=== PATIENT | male | born 1995 | race Caucasian/White ===

== ENCOUNTER 2020-02-28 22:53 | Emergency (ER) | payer OTHER ==
[~2020-02-28] VITALS: Ht 175.3 cm; Wt 76.3 kg
[2020-02-28] MEDS ORDERED: ACE65ERTAB PO (22:58)
[2020-02-28] MEDS ORDERED: KETOROLAC 60 MG/2 ML VIAL IM ONE (23:15)
[2020-02-28] MEDS ORDERED: diazePAM 10 MG TAB PO ONE (23:15)
[2020-02-28] MEDS ORDERED: LIDOCAINE 5% (LIDODERM) PATCH TD ONE (23:15)
[2020-02-29] MEDS ORDERED: NORCO, ANEXSIA 5/325MG TABLET (HYDROcodone/ACETAMINOPHEN) PO ONE (00:15)
[2020-02-29] MEDS ORDERED: BIOF4GEL4 TOP (01:06)
[2020-02-29] MEDS ORDERED: ASPE4PAD TOP (01:06)
[2020-02-29] MEDS ORDERED: NAPR-837 PO (01:06)
[2020-02-29] MEDS ORDERED: METH1TAB40 PO (01:06)
[2020-02-29] MEDS ORDERED: NORCO 5/325MG TABLET (BULK FOR ED) PO ONE (01:15)
[2020-02-29 01:20] VITALS: BP 106/64
[2020-02-29] MEDS ORDERED: **NOTE PATIENT COMMENT** MISC XX ONE (11:15)
== END 2020-02-29 01:37 | disposition home or self-care (01) ==
LOC: M ED 22:53
DX: M62.830 Muscle spasm of back (principal); M51.36 Other intervertebral disc degeneration, lumbar region
CPT/HCPCS: 96372; 99283; J1885

== ENCOUNTER → 2020-10-24 | Outpatient (REF) | payer OTHER ==
[~2020-10-24] MED LIST: ACE65ERTAB PO; ASPE4PAD TOP; BIOF4GEL4 TOP; METH-1164 PO; NAPR-837 PO
[2020-10-24 15:50] LABS: BASO # 0.1 10^3/uL (0.0-0.2); BASO % 0.7 % (0.0-1.0); EOS # 0.1 10^3/uL (0.0-0.5); EOS % 1.2 % (0.0-3.0); HEMATOCRIT 43.5 % (42.0-52.0); HEMOGLOBIN 14.3 g/dl (13.5-17.5); LYMPH % 26.8 % (24.0-44.0); MEAN CORPUSCULAR HEMOGLOBIN 29.8 pg (27.0-33.0); MEAN CORPUSCULAR HGB CONC 32.9 g/dl (32.0-36.5); MEAN CORPUSCULAR VOLUME 90.6 fl (80.0-96.0); MONO # 0.6 10^3/uL (0.0-0.8); MONO % 7.6 % (0.0-5.0); NEUTROPHILS # 4.8 10^3/uL (1.5-8.5); NEUTROPHILS % 63.4 % (36.0-66.0); PLATELET COUNT, AUTOMATED 269 10^3/uL (150-450); WHITE BLOOD COUNT 7.5 10^3/uL (4.0-10.0)
[2020-10-24 16:25] LABS: ALBUMIN 4.3 GM/DL (3.2-5.2); ALT/SGPT 38 U/L (12-78); BILIRUBIN,TOTAL 0.6 MG/DL (0.2-1.0); BLOOD UREA NITROGEN 16 MG/DL (7-18); CALCIUM LEVEL 9.7 MG/DL (8.5-10.1); CARBON DIOXIDE LEVEL 31 MEQ/L (21-32); CHLORIDE LEVEL 105 MEQ/L (98-107); GLOMERULAR FILTRATION RATE > 60.0 (>60); GLUCOSE, FASTING 92 MG/DL (70-100); POTASSIUM SERUM 4.4 MEQ/L (3.5-5.1); SODIUM LEVEL 138 MEQ/L (136-145); TOTAL PROTEIN 7.6 GM/DL (6.4-8.2)
[2020-10-24 16:26] LABS: ERYTHROCYTE SEDIMENTATION RATE 4 mm/hr (0-15)
== END ==
LOC: M SFHCPLAZ 14:33
PROVIDERS: ATTEND Internal Medicine Infectious Disease
DX: R93.7 Abnormal findings on diagnostic imaging of other parts of musculoskeletal system (principal)
CPT/HCPCS: 36415; 80053; 85025; 85652; 86140; 86480; G0463

== ENCOUNTER → 2020-11-26 | Outpatient (CLI) | payer OTHER | LOC: M CARPUL 09:07 | PROVIDERS: ATTEND Internal Medicine | DX: R00.2 Palpitations (principal) ==

== ENCOUNTER → 2021-03-17 | Outpatient (CLI) | payer OTHER ==
--- NOTE | 2021-03-17 10:59 | REPPI ---
INDICATION: DIAGNOSTICS NEEDED FOR HISTORY AND PHYSICAL EVALUATION COMPARISON: None. TECHNIQUE: PA and lateral. FINDINGS: The mediastinum and cardiac silhouette are normal. The lung tucker are clear and without acute consolidation, effusion, or pneumothorax. The skeletal structures are intact and normal. IMPRESSION: No acute cardiopulmonary process. <Electronically signed by Hugo Santacruz > 03/17/21 [id number]
--- NOTE | 2021-03-17 10:59 | REPPI ---
INDICATION: DIAGNOSTICS NEEDED FOR HISTORY AND PHYSICAL EVALUATION COMPARISON: None. TECHNIQUE: Lozada and bilateral lateral views of the nasal bones. FINDINGS: Nasal septum is midline. Nasal bones appear intact without acute fracture or dislocation. Overlying soft tissues are grossly unremarkable. IMPRESSION: No acute nasal bone fracture identified. <Electronically signed by Hugo Santacruz > 03/17/21 1056
--- NOTE | 2021-03-17 11:00 | REPPI ---
INDICATION: DIAGNOSTICS NEEDED FOR HISTORY AND PHYSICAL EVALUATION COMPARISON: None. TECHNIQUE: AP, lateral, bilateral oblique views right and left wrist. FINDINGS: The carpal bones, surrounding osseous structures, soft tissues, and joint spaces are normal. There is no evidence for acute fracture or dislocation. No subcutaneous emphysema or radiodense foreign body. IMPRESSION: Normal bilateral wrist series. <Electronically signed by Hugo Santacruz > 03/17/21 1050
--- NOTE | 2021-03-17 11:00 | REPPI ---
INDICATION: DIAGNOSTICS NEEDED FOR HISTORY AND PHYSICAL EVALUATION COMPARISON: None. TECHNIQUE: Internal rotation, external rotation, and Y view right and left shoulder. FINDINGS: No acute fracture or dislocation. The acromioclavicular and glenohumeral joints are intact. No periarticular calcifications or degenerative changes are appreciated. Sub acromial space is normal. Surrounding soft tissues are unremarkable. IMPRESSION: Normal bilateral shoulder radiographs. <Electronically signed by Hugo Santacruz > 03/17/21 0536
--- NOTE | 2021-03-17 11:01 | REPPI ---
INDICATION: DIAGNOSTICS NEEDED FOR HISTORY AND PHYSICAL EVALUATION COMPARISON: None. TECHNIQUE: AP, lateral, bilateral oblique views right hand. FINDINGS: The osseous structures and joint spaces are intact and normal. There is no evidence for acute fracture or dislocation. Surrounding soft tissues are unremarkable. No subcutaneous emphysema or radiodense foreign body. IMPRESSION: Normal right hand series. <Electronically signed by Hugo Santacruz > 03/17/21 1058
--- NOTE | 2021-03-17 11:03 | REPPI ---
INDICATION: DIAGNOSTICS NEEDED FOR HISTORY AND PHYSICAL EVALUATION COMPARISON: None. TECHNIQUE: AP, lateral, bilateral oblique views right and left foot. FINDINGS: Left foot is normal in appearance and without evidence for acute or healed injury. No significant degenerative changes. Osseous structures, joint spaces, and surrounding soft tissues appear normal. Right foot is essentially unremarkable and relatively normal without degenerative changes or evidence for acute fracture/dislocation. The joint spaces are normal. Single oblique view demonstrates small linear bone like density overlying the navicular bone which is not identified on any other view and should be correlated with the possible history of prior injury. IMPRESSION: 1. Normal left foot. 2. With the exception of a possible small linear bone density overlying the navicular bone, the right foot is normal. Correlation with history of prior trauma is recommended. <Electronically signed by Hugo Santacruz > 03/17/21 1100
--- NOTE | 2021-03-17 11:04 | REPPI ---
INDICATION: DIAGNOSTICS NEEDED FOR HISTORY AND PHYSICAL EVALUATION COMPARISON: None. TECHNIQUE: AP lateral and sunrise views of the left knee. FINDINGS: Osseous structures, joint spaces, and surrounding soft tissues are normal. No evidence for acute or healed injury. No effusion. No degenerative changes appreciated. IMPRESSION: Normal left knee radiographs. <Electronically signed by Hugo Santacruz > 03/17/21 1109
[2021-03-17 13:27] LABS: HEMATOCRIT 44.1 % (42.0-52.0); HEMOGLOBIN 14.4 g/dl (13.5-17.5); MEAN CORPUSCULAR HEMOGLOBIN 29.6 pg (27.0-33.0); MEAN CORPUSCULAR HGB CONC 32.7 g/dl (32.0-36.5); MEAN CORPUSCULAR VOLUME 90.6 fl (80.0-96.0); PLATELET COUNT, AUTOMATED 283 10^3/uL (150-450); RED BLOOD COUNT 4.87 10^6/uL (4.30-6.10); WHITE BLOOD COUNT 7.6 10^3/uL (4.0-10.0)
== END ==
LOC: M PLAIMG 09:27
DX: Z00.00 Encounter for general adult medical examination without abnormal findings (principal)